=== PATIENT | male | born 1985 | race Caucasian/White ===

== ENCOUNTER → 2016-04-26 | Outpatient (CLI) | payer OTHER ==
[~2016-04-26] MED LIST: CELE-19 PO; DICL75TA PO; FISH100049 PO; LIDO1OIN2 TOP; TIZA4CAP3 PO
--- NOTE | 2016-04-26 10:47 | REP ---
Right knee series: Five views. History: Medial right knee pain. Findings: Five views of the right knee demonstrate clothing artifact. Bones, joints, and soft tissues are otherwise unremarkable. Impression: Clothing artifact over the distal thigh. Otherwise negative right knee views. Signed by Bashir Sarmiento MD 04/26/2016 02:57 P
== END ==
LOC: M LRY 09:24
PROVIDERS: ATTEND Family Medicine
DX: M25.561 Pain in right knee (principal)
CPT/HCPCS: 73564; G0463

== ENCOUNTER → 2016-04-27 | Outpatient (CLI) | payer OTHER ==
--- NOTE | 2016-05-10 01:08 | ECWPNPC ---
PATIENT NAME: SUNNY GAMBOA : 1985 GENDER: MALE VISIT DATE: 04/27/2016 DISCHARGE DATE: 04/27/16937 VISIT LOCKED DATE TIME: PHYSICIAN: KAMAR MOHR RESOURCE: KAMAR MOHR REASON FOR APPOINTMENT 1. POST PROCEDURE- LBP HISTORY OF PRESENT ILLNESS HISTORY OF PRESENT ILLNESS: PAIN THE PATIENT DESCRIBES THE PAIN... THE PATIENT DESCRIBES THE PAIN... THE PATIENT DESCRIBES THE PAIN... THE PATIENT DESCRIBES THE PAIN... HERE FOR LBP. HERE FOR POST PROCEDURE F/U. HAD BILAT SIJ INJECTION -.REPORTS >75% IMPROVEMENT IN PAIN POST PROCEDURE FOR APROXIMATLEY 6 DAYS THEN PAIN RETURNED TO BASELINE.REPORTS THAT FOR 6 DAYS POST PROCEDURE HE WAS ABLE TO SIT FOR LONGER PERIODS OF TIME BEFORE PAIN WOULD BE INCREAED.LDESCRIBES PAIN CONSTANT ACHE WITH INTERMITTENT SHARP PAIN WITH PROLONGED SITTING,LIFTING AND BENDING.PAIN LEVEL 3/10 VAS. USING NAPROXEN 500MG DAILY,LIDOCAINE OINTMENT,ICE OR HEAT AND STRETCHING. FALL RISK SCREENING: SCREENING :NO FALLS IN THE PAST YEAR CURRENT MEDICATIONS TAKING NAPROXEN 500 MG TABLET ORALLY ONCE DAILY NEEDED TAKING LIDOCAINE HCL 5 % CREAM 1 APPLICATION TO AFFECTED AREA NEEDED EXTERNALLY BID PRN TAKING VALTREX 1 GM TABLET 1 TABLET ORALLY TWICE DAILY NEEDED NOT-TAKING JOINT SUPPORT - CAPSULE 1 CAP ORALLY DAILY NOT-TAKING ZANAFLEX 4 MG TABLET 1 TABLET NEEDED ORALLY EVERY 8 HRS PRN NOT-TAKING NORCO 5-325 MG TABLET 1 ORALLY EVERY 6 HRS PRN MDD2 MEDICATION LIST REVIEWED AND RECONCILED WITH THE PATIENT PAST MEDICAL HISTORY HERPESVIRAL VESICULAR DERMATITIS MIDLINE LOW BACK PAIN WITHOUT SCIATICA SCHEURMANN'S DISEASE ALLERGIES N.K.D.A. SOCIAL HISTORY GENERAL: TOBACCO USE ARE YOU A:NONSMOKER LEARNING BARRIERS / SPECIAL NEEDS ORIENTED TO PLAN OF CARE: PATIENT, PAIN MANAGEMENT PATIENT, ORIENTED TO PLAN OF CARE: PATIENT, PAIN MANAGEMENT PATIENT. NEW PATIENT PAIN DIARY TODAY'S VISITNOTES FROM 0-10, WHAT LEVEL IS YOUR PAIN TODAY?0 PAIN CLINIC PFS, CLERGY, PUBLIC HEALTH REFERRALS PFS REFERRAL NEEDED?NO CLERGY REFERRAL NEEDED?NO PUBLIC HEALTH REFERRAL NEEDED?NO WAS THE PROVIDER NOTIFIED OF ANY PERTINENT INFO?NO PFS REFERRAL NEEDED?NO CLERGY REFERRAL NEEDED?NO PUBLIC HEALTH REFERRAL NEEDED?NO WAS THE PROVIDER NOTIFIED OF ANY PERTINENT INFO?NO REVIEW OF SYSTEMS CONSTITUTIONAL: ANY CHANGE IN YOUR MEDICAL CONDITION? NO . CHILLS NO . FEVER NO . INFECTION: DO YOU HAVE NEW INFECTIONS? NO . DO YOU HAVE HISTORY OF MRSA? NO . MUSCULOSKELETAL: ANY NEW PATTERNS OF PAIN OR NUMBNESS? NO . GASTROENTEROLOGY: ANY NEW CHANGE IN BOWEL CONTROL? NO . GENITOURINARY: ANY NEW CHANGE IN BLADDER CONTROL? NO . IS THERE A CHANCE YOU COULD BE ? NO . HEMATOLOGY/LYMPH: DO YOU TAKE ANY BLOOD THINNERS? (FOR EXAMPLE- COUMADIN, PLAVIX, AGGRENOX, PLATEL, PRADAXA, OR XARELTO) NO . WHEN WAS YOUR LAST DOSE? DATE: TIME: . NEUROLOGY: HAVE YOU FALLEN IN THE PAST 6 MONTHS? NO . ANY NEW EXTREMITY NUMBNESS OR WEAKNESS? NO . CARDIOLOGY: DO YOU HAVE A PACEMAKER OR DEFIBRILLATOR? NO . RESPIRATORY: HAVE YOU BEEN SICK IN THE PAST WEEK? NO . FEVER NO . FLU LIKE SYMPTOMS? NO . COUGH NO . INTEGUMENTARY: DO YOU HAVE ANY RASHES OR OPEN SORES? NO . ALLERGIC/IMMUNO: ARE YOU ALLERGIC TO SHELLFISH OR IV DYE? NO . ANY NEW ALLERGIES? NO . PSYCHIATRIC: DO YOU HAVE THOUGHTS OF HURTING YOURSELF OR SOMEONE ELSE? NO . ARE YOU ABUSED, NEGLECTED, OR IN AN UNSAFE ENVIRONMENT? NO . ENDOCRINOLOGY: ARE YOU DIABETIC? NO . OTHER: DO YOU NEED ANY PRESCRIPTIONS? YES . IF YES, PLEASE LIST: PAIN MEDICATION . ANY NEW PROBLEMS WITH YOUR MEDICATIONS? NO . WHEN DID YOU LAST EAT? ____ . WHEN DID YOU LAST DRINK? ____ . WHAT DID YOU LAST DRINK? ____ . NAME OF PERSON DRIVING YOU HOME? ____ . DO YOU HAVE ANY OTHER QUESTIONS OR CONCERNS YES, WAS WONDERING ABOUT OTHER PROCEDURES . REVIEWED BY: PROVIDER: KAMAR BEAVERS . VITAL SIGNS WT 196 LBS, HT 73 IN, BMI 25.86 INDEX, BP 149/91 MM HG, HR 96 /MIN, RR 16 /MIN, TEMP 96.8 F, OXYGEN SAT % 99, NA INITIALS TL 0840, REVIEWED BY: CS. EXAMINATION GENERAL EXAMINATION: HEENT:NORMAL. NECK:NO MASS, NO LYMPHADENOPATHY. LUNGS:LUNG SOUNDS ARE CLEAR. HEART:HEART RATE REGULAR, HEART SOUNDS ARE NORMAL, RHYTHM IS REGULAR, NO MURMUR. LUMBAR SACRAL SPINEMUSCLE STRENGTH TESTING 5/5 BILATERAL, PALPATION: NEGATIVE FOR PAIN OVER L/S SPINE. NEGATIVE FOR PAIN OVER L/S PARSPINALS.NEGATIVE FOR PAIN BILAT. SIJ. DIAGNOSTIC DATA:REVIEWED L/S SPINE [id number]-[id number]. ASSESSMENTS CHRONIC BILATERAL LOW BACK PAIN, WITH SCIATICA PRESENCE UNSPECIFIED - M54.5 (PRIMARY) SACROILIAC JOINT PAIN - M53.3 TREATMENT CHRONIC BILATERAL LOW BACK PAIN, WITH SCIATICA PRESENCE UNSPECIFIED CONTINUE NAPROXEN TABLET, 500 MG, ORALLY, ONCE DAILY NEEDED CONTINUE LIDOCAINE HCL CREAM, 5 %, 1 APPLICATION TO AFFECTED AREA NEEDED, EXTERNALLY, BID PRN REFILL NORCO TABLET, 5-325 MG, 1, ORALLY, EVERY 6 HRS PRN MDD2, 30 DAY(S), 30, REFILLS 0 PROCEDURE CODES FA211 ESTABILISHED PATIENT [facility] CHARGE FOLLOW UP PT MOVING ELECTRONICALLY SIGNED BY NIMESH MCNEIL ON 05/09/2016 AT 11:15 AM EST DISCLAIMER : THIS IS A VISIT SUMMARY EXTRACTED FROM THE [employer] CHART. IT IS NOT A COPY OF THE [employer] PROGRESS NOTE. MTDD
== END ==
LOC: M PAIN 08:40
PROVIDERS: ATTEND Nurse Practitioner Family
DX: Z09 Encounter for follow-up examination after completed treatment for conditions other than malignant neoplasm (principal); M54.5 Low back pain; M53.3 Sacrococcygeal disorders, not elsewhere classified; B00.1 Herpesviral vesicular dermatitis; M41.80 Other forms of scoliosis, site unspecified; Z79.899 Other long term (current) drug therapy

== ENCOUNTER → 2016-05-01 | Outpatient (CLI) | payer OTHER ==
--- NOTE | 2016-05-02 08:56 | REP ---
MRI right knee without contrast: History: Medial right knee pain. Comparison radiographs are from April 26, 2016. Technique: Sagittal, axial and coronal imaging planes were utilized for T1, proton density and T2-weighted scans obtained in the usual fashion with and without fat saturation. MRI findings: There is a small joint effusion. A tiny Sanz's cyst is seen in the posteromedial popliteal soft tissues. Cortical and medullary bone signal intensity are normal. Anterior and posterior cruciate ligaments are intact. The patellar and quadriceps tendons are normal in appearance. There is no evidence of medial or lateral collateral ligament disruption. There is increased signal intensity in the posterior horn and posterior body of the medial meniscus which extends to the inferior articular margin compatible with a tear. No displaced meniscal material is appreciated. No lateral meniscal tear is seen. There are mild chondromalacia changes in the central and lateral patellar articular cartilage. There is mild heterogeneous signal intensity in the articular cartilage of the medial tibial plateau and in the lateral tibial plateau consistent with mild chondromalacia here as well. No focal articular cartilage defect is seen. There is a tiny bone island in the region of the anterior tibial tubercle. No adjacent soft tissue mass is seen. There is heterogeneous T2 signal intensity and mild fascial irregularity suggesting partial tear of the proximal insertion of the medial head of the gastrocnemius on the medial aspect of the distal femur posteriorly and medially. No vascular abnormality is seen. No other abnormality is seen. Impression: 1. 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 2. Small joint effusion and Sanz's cyst. 3. Posterior horn and posterior body tear medial meniscus nondisplaced. 4. Evidence of recent partial tear of the medial head of the gastrocnemius insertion on the posteromedial aspect of the distal femur. Signed by Bashir Sarmiento MD 05/02/2016 09:28 A
== END ==
LOC: M RAD 17:29
PROVIDERS: ATTEND Family Medicine
DX: M94.261 Chondromalacia, right knee (principal); M71.21 Synovial cyst of popliteal space [Baker], right knee; M23.229 Derangement of posterior horn of medial meniscus due to old tear or injury, unspecified knee